=== PATIENT | male | born 1980 | race Caucasian/White ===

== ENCOUNTER 2024-08-15 10:55 | Emergency (ER) | payer OTHER ==
[2024-08-15 11:01] VITALS: RESP 18; TEMP 97.9
--- NOTE | 2024-08-15 11:54 | XR ---
EXAMINATION TYPE: XR chest 2V DATE OF EXAM: 08/15/2024 11:44 AM COMPARISON: None CLINICAL INDICATION: Male, 44 years old with history of Chest Pain, , TECHNIQUE: PA and lateral views FINDINGS: The cardiomediastinal silhouette, aorta, and pulmonary vasculature are within normal limits. Lungs an d pleural spaces are clear. IMPRESSION: No acute cardiopulmonary process. [facility], Workstation: [facility], 08/15/2024 11:52 AM
[2024-08-15 11:55] LABS: Basophils # (A) 0.04 10*3/uL (0.00-0.10); Basophils % (A) 0.8 %; HCT 40.4 % (39.6-50.0); HGB 14.4 g/dL (13.0-17.0); Lymphocytes # (A) 1.83 10*3/uL (0.90-5.00); Lymphocytes % (A) 36.1 %; MCH 30.8 pg (27.0-32.0); MCHC 35.6 g/dL (32.0-37.0); MCV 86.5 fL (80.0-97.0); Mean Platelet Volume 8.3 fL (9.5-12.2); Monocytes # (A) 0.45 10*3/uL (0.20-1.00); Monocytes % (A) 8.9 %; Neutrophils # (A) 2.64 10*3/uL (1.80-7.70); Platelet Count 226 10*3/uL (140-440); RBC 4.67 10*6/uL (4.40-5.60); RDW 12.3 % (11.5-14.5); WBC 5.07 10*3/uL (4.50-10.00)
[2024-08-15 12:05] LABS: African American GFR (CKD) >90 (>60 ml/min/1.73 sqM); Anion Gap 6 mmol/L; Blood Urea Nitrogen 15 mg/dL (9-20); Calcium 9.3 mg/dL (8.4-10.2); Carbon Dioxide 28 mmol/L (22-30); Chloride 107 mmol/L (98-107); Glucose 92 mg/dL (74-99); Magnesium 2.1 mg/dL (1.6-2.3); Non-African American GFR(CKD) >90 (>60 ml/min/1.73 sqM); Potassium 3.8 mmol/L (3.5-5.1); Sodium 141 mmol/L (137-145); Total Protein 6.9 g/dL (6.3-8.2)
[2024-08-15 12:06] LABS: ALT 16 U/L (4-49); AST 20 U/L (17-59); Albumin 4.3 g/dL (3.5-5.0); Alkaline Phosphatase 56 U/L (38-126); Total Bilirubin 0.6 mg/dL (0.2-1.3)
[2024-08-15 12:08] LABS: INR 0.9 (<1.2); Partial Thromboplastin Time 23.9 sec (22.0-30.0); Prothrombin Time 10.6 sec (10.0-12.5)
--- NOTE | 2024-08-15 12:08 | ED ---
Chest Pain HPI - General Source: patient, RN notes reviewed Mode of arrival: ambulatory Limitations: no limitations - History of Present Illness MD Complaint: chest pain <Renee Whittington - Last Filed: 08/15/24 12:06> <Johnathon Rust - Last Filed: 08/15/24 15:37> - General Chief Complaint: Chest Pain Stated Complaint: Chest Pain Time Seen by Provider: 08/15/24 12:00 - History of Present Illness Initial Comments: Quick Note: This is a 44 year old male who presents to the emergency department for chest pain. States that it started a couple of days ago. Pain is largely centralized but slightly worse on the left side. States that it is worse when he breathes. Also reports some shortness of breath. Denies any personal cardiac history, but reports a cardiac history in his mother. (Renee Whittington) This is a 44-year-old male with left sided chest pain. Patient reports an area that is point tender worse with movement worse with deep breathing. Patient denies shortness of breath. Denies diaphoresis or vomiting. Denies cardiac history. No lower extremity pain or swelling. No fever. No cough. (Johnathon Rust) - Related Data Allergies Allergy/AdvReac Type Severity Reaction Status Date / Time No Known Allergies Allergy Verified 08/15/24 11:01 Review of Systems ROS Other: All systems not noted in ROS Statement are negative. <Renee Whittington - Last Filed: 08/15/24 12:06> ROS Other: All systems not noted in ROS Statement are negative. <Johnathon Rust - Last Filed: 08/15/24 15:37> ROS Statement: Those systems with pertinent positive or pertinent negative responses have been documented in the HPI. Past Medical History Past Medical History: No Reported History History of Any Multi-Drug Resistant Organisms: None Reported Past Surgical History: No Surgical Hx Reported Past Psychological History: No Psychological Hx Reported Smoking Status: Current every day smoker Past Alcohol Use History: Rare Past Drug Use History: Marijuana <Renee Whittington - Last Filed: 08/15/24 12:06> General Exam Limitations: no limitations <Renee Whittington - Last Filed: 08/15/24 12:06> General appearance: alert, in no apparent distress Head exam: Present: atraumatic, normocephalic Eye exam: Present: normal appearance, PERRL ENT exam: Present: normal exam Neck exam: Present: normal inspection. Absent: tenderness, meningismus Respiratory exam: Present: normal lung sounds bilaterally, chest wall tenderness (Tender at the site of pain complaint). Absent: respiratory distress, wheezes Cardiovascular Exam: Present: regular rate, normal rhythm GI/Abdominal exam: Present: soft. Absent: distended, tenderness, guarding Extremities exam: Present: normal inspection, normal capillary refill. Absent: pedal edema, calf tenderness Neurological exam: Present: alert, oriented X3, CN II-XII intact. Absent: motor sensory deficit Psychiatric exam: Present: normal affect, normal mood Skin exam: Present: warm, dry, intact. Absent: cyanosis, diaphoretic <Johnathon Rust - Last Filed: 08/15/24 15:37> - General Exam Comments Initial Comments: Visual Physical Exam Vital signs reviewed General: Well-appearing, nontoxic, no acute distress. Head: Normocephalic, atraumatic Eyes: PERRLA, EOMI ENT: Airway patent Chest: Nonlabored breathing Skin: No visual rash, normal skin tone Neuro: Alert and oriented 3 Musculoskeletal: No gross abnormalities (Renee Whittington) Course Vital Signs 08/15/24 10:59 Temperature 97.9 F Pulse Rate 67 Respiratory 18 Rate Blood Pressure 156/105 O2 Sat by Pulse 100 Oximetry Chest Pain [facility] <Renee Whittington - Last Filed: 08/15/24 12:06> <Johnathon Rust - Last Filed: 08/15/24 15:37> - MDM I performed the QuickNote portion of this chart. Signed Renee Whittington PA-C. (Renee Whittington) Was pt. sent in by a medical professional or institution (ADAM Sharma, SWITCHBOARD OPERATOR RECEPTIONIST, urgent care, hospital, or care home...) When possible be specific @ -No Did you speak to anyone other than the patient for history (EMS, parent, family, police, friend...)? What history was obtained from this source @ -No Did you review nursing and triage notes (agree or disagree)? Why? @ -I reviewed and agree with nursing and triage notes Were old charts reviewed (outside hosp., previous admission, EMS record, old EKG, old radiological studies, urgent care reports/EKG's, care home records)? Report findings @ -No old charts were reviewed Differential Chest Pain: Stable Angina, Unstable Angina, STEMI, NSTEMI Aortic Dissection, Pneumothorax, Musculoskeletal, Esophageal Spasm GERD, Cholecystitis, Pancreatitis, Zoster, this is not meant to be an all-inclusive list. EKG interpreted by me (3pts min.). @Sinus rhythm rate of 61, WA interval 148, QRS duration 102, QTc [address] segment elevation X-rays interpreted by me (1pt min.). @ -Chest x-ray negative for acute cardiopulmonary findings CT interpreted by me (1pt min.). @ -None done U/S interpreted by me (1pt. min.). @ -None done What testing was considered but not performed or refused? (CT, X-rays, U/S, labs)? Why? @ -None What meds were considered but not given or refused? Why? @ -None Did you discuss the management of the patient with other professionals (professionals i.e. , PA, SWITCHBOARD OPERATOR RECEPTIONIST, lab, RT, psych nurse, rn social services, optical glass silverer, teacher, trust officer, director case)? Give summary @ -No Was smoking cessation discussed for >3mins.? @ -No Was critical care preformed (if so, how long)? @ -No Were there social determinants of health that impacted care today? How? (Homelessness, low income, unemployed, alcoholism, drug addiction, transportation, low edu. Level, literacy, decrease access to med. care, mcc, rehab)? @ -No Was there de-escalation of care discussed even if they declined (Discuss DNR or withdrawal of care, Hospice)? DNR status @ -No What co-morbidities impacted this encounter? (DM, HTN, Smoking, COPD, CAD, Cancer, CVA, ARF, Chemo, Hep., AIDS, mental health diagnosis, sleep apnea, morbid obesity)? @ -Current smoker Was patient admitted / discharged? Hospital course, mention meds given and route, prescriptions, significant lab abnormalities, going to OR and other pertinent info. @44-year-old male with reproducible anterior chest pain. Just on the left side of the sternum. Patient well-appearing with stable vitals. Patient is a current smoker. EKG is sinus rhythm without ST segment elevation. He has a normal CBC, normal CMP, negative D-dimer, negative troponin. Patient was in the emergency department for 4-1/2 hours and had a second troponin draw which was again negative. Patient's pain is reproducible and likely musculoskeletal in nature. Given strict return parameters and instructed to follow-up with primary care provider. Undiagnosed new problem with uncertain prognosis? @ -No Drug Therapy requiring intensive monitoring for toxicity (Heparin, Nitro, Insulin, Cardizem)? @ -No Were any procedures done? @ -No Diagnosis/symptom? @ -Chest pain Acute, or Chronic, or Acute on Chronic? @ -Default Uncomplicated (without systemic symptoms) or Complicated (systemic symptoms)? @ -Default Side effects of treatment? @ -No Exacerbation, Progression, or Severe Exacerbation? @ -No Poses a threat to life or bodily function? How? (Chest pain, [place], [place], pneumonia, PE, COPD, DKA, ARF, appy, cholecystitis, CVA, Diverticulitis, Homicidal, Suicidal, threat to staff... and all critical care pts) @ -[Low risk at this time (Johnathon Rust) Disposition <Renee Whittington - Last Filed: 08/15/24 12:06> Is patient prescribed a controlled substance at d/c from ED?: No Time of Disposition: 15:37 <Johnathon Rust - Last Filed: 08/15/24 15:37> Clinical Impression: Chest pain Disposition: HOME SELF-CARE Condition: Good Instructions (If sedation given, give patient instructions): Chest Pain (ED) Referrals: None,Stated [Primary Care Provider] - 1-2 days
[2024-08-15 16:24] VITALS: BP 142/105; PULSE 65
== END 2024-08-15 16:23 | disposition home or self-care (01) ==
LOC: EC 10:55
DX: R07.89 Other chest pain (principal); F17.200 Nicotine dependence, unspecified, uncomplicated
CPT/HCPCS: 36415; 71046; 80053; 83735; 84484; 85025; 85379; 85610; 85730; 93005; 99285